=== PATIENT | female | born 1970 | race African-American/Black ===

== ENCOUNTER 2017-04-10 15:02 | Emergency (ER) | payer OTHER ==
[~2017-04-10] VITALS: Ht 162.6 cm; Wt 102.0 kg
[2017-04-10 17:43] LABS: BASOPHILS % 1.4 % (0.0-2.0); EOSINOPHILS % 3.3 % (0.0-5.0); HEMATOCRIT. 40.5 % (36.0-48.0); HEMOGLOBIN. 13.3 g/dL (12.0-16.0); LYMPHOCYTES % 39.3 % (20.0-50.0); MEAN CORPUSCULAR HEMOGLOBIN 26.7 pg (28.0-32.0); MEAN CORPUSCULAR VOLUME 81.6 fL (81.0-99.0); MEAN PLATELET VOLUME 7.3 fl (7.4-10.4); MONOCYTES % 7.2 % (2.0-8.0); NEUTROPHILS % 48.8 % (40.0-76.0); PLATELET 421 x1000/uL (130-400); RED BLOOD CELL COUNT 4.96 mill/uL (4.2-5.4); RED CELL DISTRIBUTION WIDTH 16.3 % (11.6-14.6)
[2017-04-10 17:54] LABS: CARBON DIOXIDE 27 mEq/L (21-32); CHLORIDE 102 mEq/L (98-107)
[2017-04-10] MEDS ORDERED: MAGNESIUM/ALUMINUM HYDROXIDE/SIMETHICONE 30ML UDC PO STA (18:42)
[2017-04-10] MEDS ORDERED: FAMOTIDINE 20MG TABLET PO ONE (18:45)
[2017-04-10 19:11] LABS: CLARITY URINE CLEAR (CLEAR); COLOR URINE YELLOW (YELLOW); GLUCOSE URINE NEGATIVE (NEGATIVE); KETONES URINE TRACE (NEGATIVE); LEUKOCYTE ESTERASE URINE NEGATIVE (NEGATIVE); NITRITE URINE NEGATIVE (NEGATIVE); OCCULT BLOOD URINE NEGATIVE (NEGATIVE); PROTEIN URINE NEGATIVE (NEGATIVE); SPECIFIC GRAVITY URINE 1.009 (1.005-1.030); UROBILINOGEN URINE 0.2 E.U./dL (0.2-1.0)
[2017-04-10 19:50] VITALS: BP 121/74
== END 2017-04-10 19:55 | disposition home or self-care (01) ==
LOC: ER 15:02
DX: K21.9 Gastro-esophageal reflux disease without esophagitis (principal); F12.10 Cannabis abuse, uncomplicated
CPT/HCPCS: 36415; 80053; 81003; 81025; 85025; 99284

== ENCOUNTER 2017-06-02 11:14 | Emergency (ER) | payer OTHER ==
[~2017-06-02] VITALS: Ht 160 cm; Wt 100.0 kg
[2017-06-02 13:59] VITALS: BP 107/61
[2017-06-02] MEDS ORDERED: KETOROLAC 60MG/2ML VIAL IM ONE (14:30)
[2017-06-02 15:02] LABS: CLARITY URINE CLEAR (CLEAR); COLOR URINE YELLOW (YELLOW); GLUCOSE URINE NEGATIVE (NEGATIVE); KETONES URINE NEGATIVE (NEGATIVE); LEUKOCYTE ESTERASE URINE NEGATIVE (NEGATIVE); NITRITE URINE NEGATIVE (NEGATIVE); OCCULT BLOOD URINE NEGATIVE (NEGATIVE); PH URINE 6.5 (4.5-8.0); PROTEIN URINE NEGATIVE (NEGATIVE); SPECIFIC GRAVITY URINE 1.025 (1.005-1.030)
[2017-06-02] MEDS ORDERED: HYDROCODONE/ACETAMINOPHEN 5/325MG TABLET PO ONE (15:15)
[2017-06-02] MEDS ORDERED: ONDANSETRON 4MG ODT PO ONE (15:15)
== END 2017-06-02 15:50 | disposition home or self-care (01) ==
LOC: ER 13:45
DX: M54.42 Lumbago with sciatica, left side (principal); G89.29 Other chronic pain; Z98.890 Other specified postprocedural states
CPT/HCPCS: 81003; 81025; 96372; 99283; J1885; Q0162

== ENCOUNTER 2018-05-25 19:16 | Emergency (ER) | payer OTHER ==
[~2018-05-25] VITALS: Ht 160 cm; Wt 86.0 kg
[2018-05-25 20:03] LABS: COLOR URINE YELLOW (YELLOW); KETONES URINE 2+ (NEGATIVE); LEUKOCYTE ESTERASE URINE NEGATIVE (NEGATIVE); NITRITE URINE NEGATIVE (NEGATIVE); OCCULT BLOOD URINE NEGATIVE (NEGATIVE); PH URINE 5.5 (4.5-8.0); PROTEIN URINE 1+ (NEGATIVE); SPECIFIC GRAVITY URINE 1.035 (1.005-1.030); UROBILINOGEN URINE 0.2 E.U./dL (0.2-1.0)
[2018-05-25 20:04] LABS: CLARITY URINE SL HAZY (CLEAR)
[2018-05-26 01:04] LABS: BASOPHILS % 0.6 % (0.0-2.0); EOSINOPHILS % 2.1 % (0.0-5.0); HEMATOCRIT. 38.4 % (36.0-48.0); HEMOGLOBIN. 12.6 g/dL (12.0-16.0); LYMPHOCYTES % 33.7 % (20.0-50.0); MEAN CORPUSCULAR HEMOGLOBIN 28.1 pg (28.0-32.0); MEAN CORPUSCULAR VOLUME 85.3 fL (81.0-99.0); MEAN PLATELET VOLUME 7.6 fl (7.4-10.4); MONOCYTES % 9.6 % (2.0-8.0); PLATELET 387 x1000/uL (130-400)
[2018-05-26 01:11] LABS: CHLORIDE 105 mEq/L (98-107)
[2018-05-26] MEDS ORDERED: ONDANSETRON HCL 4MG/2ML INJ IV STA (02:48)
[2018-05-26] MEDS ORDERED: MORPHINE SULFATE 4 MG/ML CPJ (NOT FOR IM USE) IV STA (02:48)
[2018-05-26 02:56] VITALS: BP 110/16
== END 2018-05-26 03:34 | disposition home or self-care (01) ==
LOC: ER 19:59
DX: K52.9 Noninfective gastroenteritis and colitis, unspecified (principal); R03.0 Elevated blood-pressure reading, without diagnosis of hypertension; R10.2 Pelvic and perineal pain
CPT/HCPCS: 36415; 74177; 76830; 76856; 80053; 81003; 81025; 83690; 85025; 96374; 96375; 99285; J2270; J2405; Z7610

== ENCOUNTER 2018-11-11 09:00 | Emergency (ER) | payer MEDICAID, OTHER ==
[~2018-11-11] VITALS: Ht 160 cm; Wt 91.0 kg
[2018-11-11] MEDS ORDERED: DEXAMETHASONE 10 MG/ML VIAL PO ONE (11:45)
[2018-11-11] MEDS ORDERED: KETOROLAC 60MG/2ML VIAL IM ONE (11:45)
[2018-11-11 11:49] VITALS: BP 118/76
== END 2018-11-11 13:36 | disposition home or self-care (01) ==
LOC: ER 09:00
DX: J02.9 Acute pharyngitis, unspecified (principal); Z98.890 Other specified postprocedural states
CPT/HCPCS: 87070; 87430; 96372; 99283; J1100; J1885

== ENCOUNTER 2024-02-10 19:06 | Emergency (ER) | payer MEDICAID, OTHER ==
[~2024-02-10] VITALS: Ht 170.2 cm; Wt 105.0 kg
[2024-02-10 19:12] VITALS: O2SAT 97
[2024-02-10] MEDS ORDERED: KETOROLAC 30MG/ML VIAL IM ONE (20:15)
[2024-02-10] MEDS ORDERED: HYDROCODONE/ACETAMINOPHEN 5/325MG TABLET PO ONE (20:15)
[2024-02-10] MEDS: KETOROLAC 30MG/ML VIAL IM NR (22:00)
[2024-02-10] MEDS: HYDROCODONE/ACETAMINOPHEN 5/325MG TABLET PO NR (22:00)
[2024-02-10] MEDS ORDERED: NAPR-1176 MT (22:05)
[2024-02-10] MEDS ORDERED: CYCL10TA21 MT (22:05)
[2024-02-10 23:26] VITALS: BP 139/85; PULSE 71; RESP 20; TEMP 98.5
== END 2024-02-10 23:29 | disposition home or self-care (01) ==
LOC: ER 19:06
DX: S16.1XXA Strain of muscle, fascia and tendon at neck level, initial encounter (principal); S39.012A Strain of muscle, fascia and tendon of lower back, initial encounter; D25.9 Leiomyoma of uterus, unspecified; E04.9 Nontoxic goiter, unspecified; V49.59XA Passenger injured in collision with other motor vehicles in traffic accident, initial encounter; Y93.89 Activity, other specified; Y92.89 Other specified places as the place of occurrence of the external cause; Y99.8 Other external cause status
CPT/HCPCS: 99285; 72125; 72131; 76536; 96372; J1885